=== PATIENT | female | born 1980 | race Caucasian/White ===

== ENCOUNTER 2020-01-05 17:34 | Emergency (ER) | payer MEDICAID, OTHER ==
[~2020-01-05] VITALS: Ht 162 cm; Wt 110.0 kg
--- OUTSIDE RECORDS SUMMARY | 2020-01-05 17:41 | XMS REPORT | Continuity of Care Document ---
Author Organization Unknown Address Unknown Phone Unavailable Allergies Active Description Code Type Severity Reaction Onset Reported/Identified Relationship to Patient Clinical Status Yes NO KNOWN DRUG ALLERGIES UNKNOWN UNKNOWN Medications There is no data. Problems Date Dx Coded Attending Type Code Diagnosis Diagnosed By 02/18/2019 Sudhir Alvarez 847.0 NECK SPRAIN 02/18/2019 Sudhir Alvarez S16.1XXA STRAIN OF MUSCLE, FASCIA AND TENDON AT NECK LEVEL, INIT Procedures There is no data. Results Test Result Range CMP - 12/26/18 08:56 GLUCOSE 87 mg/dL 65-99 UREA NITROGEN (BUN) 15 mg/dL 7-25 CREATININE 0.66 mg/dL 0.50-1.10 eGFR NON-AFR. [place] 110 mL/min/1.73m2 > OR = 60 eGFR 128 mL/min/1.73m2 > OR = 60 BUN/CREATININE RATIO NOT APPLICABLE (calc) 6-22 SODIUM 136 mmol/L 135-146 POTASSIUM 4.4 mmol/L 3.5-5.3 CHLORIDE 103 mmol/L 98-110 CARBON DIOXIDE 26 mmol/L 20-32 CALCIUM 8.4 mg/dL 8.6-10.2 PROTEIN, TOTAL 6.4 g/dL 6.1-8.1 ALBUMIN 3.6 g/dL 3.6-5.1 GLOBULIN 2.8 g/dL (calc) 1.9-3.7 ALBUMIN/GLOBULIN RATIO 1.3 (calc) 1.0-2. 5 BILIRUBIN, TOTAL 0.3 mg/dL 0.2-1.2 ALKALINE PHOSPHATASE 101 U/L 33-115 AST 12 U/L 10-30 ALT 16 U/L 6-29 TSH - 12/26/18 08:56 TSH 1.54 mIU/L NRG PDM - 09 PANEL (PROFILE 1) - 01/23/19 15 :22 Prescribed Drug 1 Xanax(TM) NRG Creatinine 92.6 mg/dL > or = 20.0 pH 6.56 4.5 - 9.0 Oxidant NEGATIVE mcg/mL <200 Amphetamines NEGATIVE ng/mL <500 medMATCH Amphetamines CONSISTENT NRG Benzodiazepines POSITIVE ng/mL <100 Marijuana Metabolite NEGATIVE ng/mL <20 medMATCH Marijuana Metab CONSISTENT NRG Cocaine Metabolite NEGATIVE ng/mL <150 medMATCH Cocaine Metab CONSISTENT NRG Opiates NEGATIVE ng/mL <100 medMATCH Opiates CONSISTENT NRG Oxycodone NEGATIVE ng/mL <100 medMATCH Oxycodone CONSISTENT NRG COMMENT NRG Alphahydroxyalprazolam 46 ng/mL <25 medMATCH aOH alprazolam CONSISTENT NRG Alphahydroxymidazolam NEGATIVE ng/mL < 50 medMATCH aOH midazolam CONSISTENT NRG Alphahydroxytriazolam NEGATIVE ng/mL < 50 medMATCH aOH triazolam CONSISTENT NRG Aminoclonazepam NEGATIVE ng/mL <25 medMATCH Aminoclonazepam CONSISTENT NRG Hydroxyethylflurazepam NEGATIVE ng/mL <50 medMATCH OH,Et flurazepam CONSISTENT NR G Lorazepam NEGATIVE ng/mL <50 medMATCH Lorazepam CONSISTENT NRG Nordiazepam NEGATIVE ng/mL <50 medMATCH Nordiazepam CONSISTENT NRG Oxazepam 153 ng/mL <50 medMATCH Oxazepam INCONSISTENT NRG Temazepam 105 ng/mL <50 medMATCH Temazepam INCONSISTENT NRG Barbiturates NEGATIVE ng/mL <300 medMATCH Barbiturates CONSISTENT NRG Methadone Metabolite NEGATIVE ng/mL <100 medMATCH Methadone Metab CONSISTENT NRG Phencyclidine NEGATIVE ng/mL <25 medMATCH Phencyclidine CONSISTENT NRG Encounters ACCT No. Visit Date/Time Discharge Status Pt. Type Provider Facility Loc./Unit Complaint [id number] 02/18/2019 11:29:00 02/18/2019 13:44: [id number]/2020 11:30:00 ACT Outpatient MARIA E GALLAGHER [facility] [id number] 01/23/2019 15:15:00 Document Registration [id number] 12/26/2018 09:20:00 Document Registration [id number] 01/05/2020 17:37:[address] Emergency AUBRIE SCHMITZ DO [facility] ER FS BILAT LEG PAIN
--- OUTSIDE RECORDS SUMMARY | 2020-01-05 17:41 | XMS REPORT ---
Author Author Crystal GALLAGHER Organization [facility] Address [address] [place] [address] Care Team Providers Care Inventory Control Assistant Name Role Phone MARIA E GALLAGHER Unavailable PROBLEMS Type Condition ICD9-CM Code PRQ16-WK Code Onset Dates Condition S tatus SNOMED Code Problem Tobacco use Z72.0 Feb, Active 09155 3000 Problem Postop check Z09 Mar, Active 1338 12235 Problem H/O: Z98.891 Mar, Active Problem Anxiety state F41.1 Apr, Active 198 591398 Problem Morbid obesity with BMI of 40.0-44.9, adult E66 .01 Mar, Active 196620443 Problem Depression F32.9 Aug, Active 950015 005 Problem Essential hypertension I10 Active 84014802 Problem Fungal dermatitis B36.9 Apr, Active 43367077 Problem Hyperlipidemia E78.5 Active 19736 004 Problem Pain, dental K08.89 December, Active 2735 5003 Problem Cigarette nicotine dependence, uncomplicated F1 7.210 Feb, Active 859102971 Problem Moderate episode of recurrent major depressive disorder F33.1 Active 075924170 Problem Anxiety F41.9 Active 87929680 Problem Missed menses N92.6 Active 364549 00 ALLERGIES No Information ENCOUNTERS Encounter Location Date Diagnosis [facility] [address] [place] [address] Jun, [facility] [address] [place] [address] Jun, Periorbital cellulitis of ri ght eye L03.213 [facility] [address] [facility] [place] [address] Apr, Essential hypertension I10 [facility] [address] [facility] [place] [address] Mar, [facility] [address] [place] [address] Jan, [address] [address] [place] [address] Jan, Encounter for medication mon itoring Z51.81 [facility] [address] [address] [place] [address] Jan, Encounter for medication mon itoring Z51.81 [address] [place] [address] December, Depression F32.9 ; Morbid ob esity E66.01 and Essential hypertension I10 [address] [place] [address] December, Hyperlipidemia E78.5 [facility] [address] [place] [address] December, [address] [place] [address] December, Anxiety F41.9 [facility] [address] [place] [address] December, [address] [address] [place] [address] December, Skin infection L08.9 ; Routi ne lab draw Z00.00 ; Morbid obesity with BMI of 40.0-44.9, adult E66.01 ; Anxiety F41.9 ; Morbid obesity E66.01 and Missed menses N92.6 [facility] [address] [place] [address] Nov, Moderate episode of recurren t major depressive disorder F33.1 ; Anxiety F41.9 ; Dysuria R30.0 ; Routine lab draw Z00.00 and Morbid obesity with BMI of 40.0-44.9, adult E66.01 [facility] [address] [address] [place] [address] Nov, [facility] [address] [facility] [address] [facility] [place] [address] Oct, [address] [place] [address] Sep, [facility] [address] [facility] [place] [address] Aug, [facility] [address] [facility] [place] [address] Jul, [facility] [address] [facility] [place] [address] Feb, [facility] [address] [facility] [place] [address] Mar, IMMUNIZATIONS No Known Immunizations SOCIAL HISTORY Never Assessed REASON FOR VISIT Controlled fill 11/07 PLAN OF CARE VITAL SIGNS MEDICATIONS Medication Instructions Dosage Frequency Start Date End Date Duration S tatus Xanax 0.5 MG Orally 3 times a day 1 tablet as needed 8h 28 Oct, 201 9 12 days Active RESULTS No Results PROCEDURES No Known procedures INSTRUCTIONS MEDICATIONS ADMINISTERED No Known Medications MEDICAL (GENERAL) HISTORY Type Description Date Surgical History section Surgical History gallbladder removal Hospitalization History surgical
[2020-01-05 17:44] VITALS: BP 164/103
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
[2020-01-05] MEDS ORDERED: KETOROLAC 60 MG/2 ML VIAL IM ONE ×2 (18:00)
== END 2020-01-05 18:12 | disposition home or self-care (01) ==
LOC: ER FS 17:37
DX: S39.012A Strain of muscle, fascia and tendon of lower back, initial encounter (principal); M51.16 Intervertebral disc disorders with radiculopathy, lumbar region; L01.00 Impetigo, unspecified; B95.61 Methicillin susceptible Staphylococcus aureus infection as the cause of diseases classified elsewhere; Z87.891 Personal history of nicotine dependence; X58.XXXA Exposure to other specified factors, initial encounter
CPT/HCPCS: 96372; 99284